=== PATIENT | male | born 1980 | race Caucasian/White ===

== ENCOUNTER 2021-09-17 16:33 | Emergency (ER) | payer OTHER ==
[2021-09-17] MEDS ORDERED: Bupivacaine 0.5% 10 ML SDV INJECT ONE (20:19)
[2021-09-17] MEDS ORDERED: Lidocaine 1% 10 ML MDV INJECT ONE (20:19)
[2021-09-17] MEDS ORDERED: Doxycycline 100 MG Cap PO ONE (21:25)
--- NOTE | 2021-09-17 21:28 | EDM.PDOC ---
ED HPI GENERAL MEDICAL PROBLEM - General Chief Complaint: Upper Extremity Injury/Pain Stated Complaint: R POINTER FINGER INJURY Time Seen by Provider: 09/17/21 19:39 Source of Information: Reports: Patient, RN Notes Reviewed History Limitations: Reports: No Limitations - History of Present Illness INITIAL COMMENTS - FREE TEXT/NARRATIVE: Patient is a 41-year-old male presenting to the emergency department from the [facility] for a laceration to the distal aspect of his right index finger. Patient reports that his finger got smashed a trailer hitch. Last tetanus vaccination was in 2017. Prior to coming to ER, the wound was cleansed and wrapped in sterile dressing. Patient reports that his hands were fairly clean at the time of the injury as he was only operating equipment today. Finger-Index Pain Score (Numeric/FACES): 3 - Related Data Allergies Allergy/AdvReac Type Severity Reaction Status Date / Time No Known Allergies Allergy Verified 09/17/21 17:54 Home Meds: Home Meds Doxycycline [Vibramycin] 100 mg PO BID 7 Days #13 cap 09/17/21 [Rx] Latanoprost/Pf [Latanoprost 0.005% Eye Drop] 1 drop EYEBOTH DAILY 09/17/21 [History] Past Medical History Other HEENT History: pre-glaucoma Other Musculoskeletal History: broke nose Social & Family History - Tobacco Use Years of Tobacco use: 10 Packs/Tins Daily: 0.5 - Caffeine Use Caffeine Use: Reports: Coffee, Soda - Recreational Drug Use Recreational Drug Use: No Review of Systems - Review of Systems Review Of Systems: Comprehensive ROS is negative, except as noted in HPI. ED EXAM, GENERAL - Physical Exam Exam: See Below Exam Limited By: No Limitations General Appearance: Alert, WD/WN, No Apparent Distress Respiratory/Chest: No Respiratory Distress, Lungs Clear, Normal Breath Sounds, No Accessory Muscle Use, Chest Non-Tender Cardiovascular: Normal Peripheral Pulses, Regular Rate, Rhythm, No Edema, No Gallop, No JVD, No Murmur, No Rub Extremities: Other (4.5 cm total length laceration to the distal aspect of the right index finger with avulsed fingernail. No active bleeding.) Neurological: Alert, Oriented, CN II-XII Intact, Normal Cognition, Normal Gait, Normal Reflexes, No Motor/Sensory Deficits Psychiatric: Normal Affect, Normal Mood ED TRAUMA EXTREMITY PROCEDURES - Laceration/Wound Repair Right Distal Digit - 2nd (Index) Lac/Wound Length In cm: 4.5 Appearance: Subcutaneous, Mildly Contaminated Distal NVT: Neuro & Vascular Intact Anesthetic Type: Digital Local Anesthesia - Lidocaine (Xylocaine): 1% Plain Local Anesthesia - Bupivicaine (Marcaine): 0.5% Plain Local Anesthetic Volume: 4cc Skin Prep: Chlorhexidine (Hibiciens), Providone-Iodine (Betadine), Saline, Sterile Drape Exploration/Debridement/Repair: Wound Explored, In a Bloodless Field, No Foreign Material Found Closed With: Sutures Suture Size: 4-0 # of Sutures: 8 Suture Type: Nylon Sterile Dressing Applied: Nurse Tetanus Status Addressed: Yes Complications: No Progress/Comments: Nailbed reattached using sutures. Wound well approximated. Course - Vital Signs Last Recorded V/S: Last Vital Signs Temp 98.6 F 09/17/21 17:50 Pulse 92 09/17/21 17:50 Resp 14 09/17/21 17:50 BP 145/99 H 09/17/21 17:50 Pulse Ox 100 09/17/21 17:50 - Orders/Labs/Meds Meds: Medications Discontinued Medications Generic Name Dose Route Start Last Admin Trade Name Freq PRN Reason Stop Dose Admin Bupivacaine HCl 10 ml 09/17/21 20:19 09/17/21 20:55 Bupivacaine 0.5% 10 Ml Sdv INJECT 09/17/21 20:20 10 ml ONETIME ONE Administration Doxycycline Hyclate 100 mg 09/17/21 21:25 09/17/21 21:40 Doxycycline 100 Mg Cap PO 09/17/21 21:26 100 mg ONETIME ONE Administration Lidocaine HCl 10 ml 09/17/21 20:19 09/17/21 20:55 Lidocaine 1% 10 Ml Mdv INJECT 09/17/21 20:20 10 ml ONETIME ONE Administration - Re-Assessments/Exams Free Text/Narrative Re-Assessment/Exam: She is a 41-year-old male presenting to the emergency department with laceration to the distal aspect of his right index finger. The nail is partially avulsed with the majority of the nailbed being exposed. Total laceration length measures 4.5 cm circumferential around the base of the fingernail. There appears to be good blood flow to the nailbed. I ordered x-rays of the finger and will prepare for suturing. We will plan to do digital block. 09/17/21 21:30 X-ray of the right finger shows no evidence of fracture. See procedure notes for wound closure. It is difficult to tell how close to the bone the laceration came. Also there was some mild contamination of the wound. Patient was put on doxycycline for infection prophylaxis. He is up-to-date on his tetanus vaccination. He will be heading home to [place] tomorrow and will follow up with [facility] there. Discussed return precautions and wound care. Discharge instructions as documented. Departure - Departure Time of Disposition: : Disposition: Home, Self-Care 01 Condition: Good Clinical Impression: Avulsion of nail bed - Discharge Information *PRESCRIPTION DRUG MONITORING PROGRAM REVIEWED*: No *COPY OF PRESCRIPTION DRUG MONITORING REPORT IN PATIENT CARIDAD: No Prescriptions: Doxycycline [Vibramycin] 100 mg PO BID 7 Days #13 cap Instructions: Nail Bed Injury, [place] Referrals: PCP,Not In Area [Primary Care Provider] - Forms: ED Department Discharge Additional Instructions: Wash twice daily with normal soap and water. Keep covered if there is any chance of contamination Take doxycycline as ordered starting tomorrow. Watch for signs of infection including increased redness, swelling, purulent drainage. If these should occur, you should be seen in the clinic or the nearest ER. Sutures to be removed in 10 days. You may call to schedule appointment in your local clinic the clinic to have these removed. You may check with [facility] in [place] as they may be able to remove the sutures for you. Sepsis Event Note (ED) - Evaluation Sepsis Screening Result: No Definite Risk
--- NOTE | 2021-09-18 06:38 | CR ---
Right second finger: 2 views of the right second finger were obtained. Comparison: No prior finger or hand exam is available. Soft tissue injury is seen distally. Joint spaces are maintained. No fracture or other bony abnormality is seen. Impression: 1. Soft tissue injury. 2. No bony abnormality is seen on 2-view right second finger exam. Diagnostic code #2
== END 2021-09-17 22:00 | disposition home or self-care (01) ==
LOC: JD.ED 16:33
DX: S61.310A Laceration without foreign body of right index finger with damage to nail, initial encounter (principal); Z72.0 Tobacco use; W23.0XXA Caught, crushed, jammed, or pinched between moving objects, initial encounter
CPT/HCPCS: 11760; 73140; 99283; A9270; J3490